=== PATIENT | female | born 1945 | race Caucasian/White ===

== ENCOUNTER 2020-12-25 16:47 | Emergency (ER) | payer MEDICARE | END 2020-12-25 21:54 | disposition home or self-care (01) | LOC: FER 16:47 | DX: U07.1 COVID-19 (principal); J44.9 Chronic obstructive pulmonary disease, unspecified; Z23 Encounter for immunization; Z98.890 Other specified postprocedural states; Z88.0 Allergy status to penicillin; Z88.2 Allergy status to sulfonamides; Z88.6 Allergy status to analgesic agent | CPT/HCPCS: 71045; M0243; Q0244; U0002 ==

== ENCOUNTER 2021-04-23 07:45 | Emergency (ER) | payer OTHER ==
[2021-04-23] MEDS ORDERED: NORCO 5-325 TA1 EACH PO (10:19)
== END 2021-04-23 10:39 | disposition home or self-care (01) ==
LOC: FER 07:45
DX: S22.31XA Fracture of one rib, right side, initial encounter for closed fracture (principal); S70.11XA Contusion of right thigh, initial encounter; S60.042A Contusion of left ring finger without damage to nail, initial encounter; M25.551 Pain in right hip; M25.521 Pain in right elbow; M79.642 Pain in left hand; I10 Essential (primary) hypertension; J44.9 Chronic obstructive pulmonary disease, unspecified; Z88.0 Allergy status to penicillin; Z88.2 Allergy status to sulfonamides; Z88.5 Allergy status to narcotic agent; Z88.6 Allergy status to analgesic agent; Z88.8 Allergy status to other drugs, medicaments and biological substances; W01.0XXA Fall on same level from slipping, tripping and stumbling without subsequent striking against object, initial encounter; Y92.89 Other specified places as the place of occurrence of the external cause; Y99.0 Civilian activity done for income or pay
CPT/HCPCS: 71101; 72072; 73070; 73120; 73502; 73552